=== PATIENT | male | born 1985 | race American Indian/Alaskan Native ===

== ENCOUNTER 2017-05-23 00:29 | Emergency (ER) | payer SELFPAY ==
[2017-05-23 00:44] VITALS: BP 119/69
[2017-05-23] MEDS ORDERED: DUONEB *Not for PRN Use IH ONE ×2 (00:44→00:49)
== END 2017-05-23 01:15 | disposition left against medical advice (07) ==
LOC: ED 00:29
DX: J45.909 Unspecified asthma, uncomplicated (principal); R07.89 Other chest pain; R06.2 Wheezing; Z53.21 Procedure and treatment not carried out due to patient leaving prior to being seen by health care provider
CPT/HCPCS: 94640

== ENCOUNTER 2017-05-24 01:52 | Emergency (ER) | payer OTHER ==
[2017-05-24] MEDS ORDERED: DUONEB *Not for PRN Use IH ONE (02:08)
[2017-05-24 03:02] LABS: Eosinophils % (Auto) 3.8 % (0.0-4.3); Hematocrit 45.6 % (35.5-45.6); Hemoglobin 15.2 gm/dl (11.8-15.2); Mean Corpuscular HGB Conc 33 % (32-34); Mean Corpuscular Hemoglobin 30 pg (28-32); Mean Corpuscular Volume 91 fl (84-94); Platelet Count 209 K/mm3 (140-440); Red Blood Count 5.01 M/mm3 (3.65-5.03); Red Cell Distribution Width 13.1 % (13.2-15.2); White Blood Count 9.9 K/mm3 (4.5-11.0)
[2017-05-24 03:22] LABS: Anion Gap 17 mmol/L; Blood Urea Nitrogen 12 mg/dL (9-20); Calcium 8.8 mg/dL (8.4-10.2); Carbon Dioxide 24 mmol/L (22-30); Chloride 106.1 mmol/L (98-107); Glucose 113 mg/dL (75-100); Potassium 4.1 mmol/L (3.6-5.0); Sodium 143 mmol/L (137-145)
--- NOTE | 2017-05-24 10:01 | XRay Report ---
ROUTINE CHEST, TWO VIEWS: HISTORY: Shortness of breath. The trachea, heart, mediastinal contour, lung tolentino and bony thorax are unremarkable. IMPRESSION: Unremarkable chest x-ray.
[2017-05-24 14:08] VITALS: BP 105/79
[2017-05-24] MEDS ORDERED: DELTASONE PO ONE (14:41)
[2017-05-24] MEDS ORDERED: ATROVENT IH ONE (14:41)
[2017-05-24] MEDS ORDERED: ZITHROMAX PO ONE (14:41)
[2017-05-24] MEDS ORDERED: PROVENTIL IH ONE (14:41)
--- NOTE | 2017-05-24 15:13 | Emergency Department Report ---
ED Asthma HPI - General Chief Complaint: Dyspnea/Respdistress Stated Complaint: ASTHMA Time Seen by Provider: 05/24/17 14:38 Source: patient Mode of arrival: Ambulatory Limitations: No Limitations - History of Present Illness Initial Comments: 32 year old male with a past medical history asthma presents to the hospital with shortness of breath intermittently for the past 2 weeks. Positive intermittent wheezing reported. Positive cough productive of yellow sputum. Patient denies pain, fever, or leg edema. Patient ran out of his nebulizer medication sometime ago and ran out of his inhaler last night. Denies previous history of intubation. Patient received Ventolin neb prior to my evaluation with some improvement but feels like he needs another treatment at this time. - Related Data Previous Rx's Medication Instructions Recorded Last Taken Type Albuterol Sulfate [Ventolin HFA] 2 puff IH Q4H PRN #1 hfa.aer.ad 07/24/16 05:15 Rx ALBUTEROL Inhaler [ProAir HFA 2 puff IH QID PRN #1 inha 05/24/17 Unknown Rx Inhaler] ALBUTEROL NEB's [Proventil 0.083% 2.5 mg IH TID PRN #30 neb 05/24/17 Unknown Rx NEBS] Azithromycin [Zithromax Z-CHERYL] 1 dose PO DAILY 5 Days 05/24/17 Unknown Rx Fluticasone/Salmeterol [Advair 1 puff IH BID #1 blst.w.dev 05/24/17 Unknown Rx Diskus 100-50 mcg] Prednisone [predniSONE 10 mg 10 mg PO .TAPER #1 tab.ds.pk 05/24/17 Unknown Rx (6-Day Pack, 21 Tabs)] Allergies Allergy/AdvReac Type Severity Reaction Status Date / Time No Known Allergies Allergy Verified 09/27/16 05:14 ED Review of Systems ROS: Stated complaint: ASTHMA Other details as noted in HPI Comment: All other systems reviewed and negative Other: Constitutional: No fevers chills Eyes: No eye pain visual changes ENT: No ear pain or throat pain Neck: Denies pain Respiratory: As per HPI Cardiovascular: Denies cp, palpitations, syncope GI: Denies abdominal pain, nausea, vomiting, diarrhea : Denies dysuria, urinary frequency, or urgency Musculoskeletal: Denies back pain Skin: Denies rash, lesions, erythema Neurologic: Denies headache, numbness, weakness ED Past Medical Hx - Past Medical History Hx Asthma: Yes - Surgical History Past Surgical History?: No - Social History Smoking Status: Never Smoker Substance Use Type: Alcohol - Medications Home Medications: Home Medications Medication Instructions Recorded Confirmed Last Taken Type Albuterol Sulfate [Ventolin HFA] 2 puff IH Q4H PRN #1 hfa.aer.ad 07/24/1609/27/16 05:15 Rx ALBUTEROL Inhaler [ProAir HFA 2 puff IH QID PRN #1 inha 05/24/17 Unknown Rx Inhaler] ALBUTEROL NEB's [Proventil 0.083% 2.5 mg IH TID PRN #30 neb 05/24/17 Unknown Rx NEBS] Azithromycin [Zithromax Z-CHERYL] 1 dose PO DAILY 5 Days 05/24/17 Unknown Rx Fluticasone/Salmeterol [Advair 1 puff IH BID #1 blst.w.dev 05/24/17 Unknown Rx Diskus 100-50 mcg] Prednisone [predniSONE 10 mg 10 mg PO .TAPER #1 tab.ds.pk 05/24/17 Unknown Rx (6-Day Pack, 21 Tabs)] ED Physical Exam - General Limitations: No Limitations - Other Other exam information: General: No limitations, patient is alert in no acute distress Head exam: Atraumatic, normocephalic Eyes exam: Normal appearance, pupils equal reactive to light, extraocular movements intact ENT: Moist mucous membrane, normal oropharynx Neck exam: Normal inspection, full range of motion, no meningismus nontender Respiratory exam: Mild expiratory wheezing, no tachypnea or accessory muscle use Cardiovascular: Normal rate and rhythm, normal heart sounds Abdomen: Soft, nondistended, and nontender, with normal bowel sounds, no rebound, or guarding Extremity: Full range of motion normal inspection no deformity, tenderness or edema Back: Normal Inspection, full range of motion, no tenderness Neurologic: Alert, oriented x3, cranial nerves intact, no motor or sensory deficit Psychiatric: normal affect, normal mood Skin: Warm, dry, intact ED Course Vital Signs 05/24/17 05/24/17 05/24/17 02:04 02:14 02:24 Temperature 97.4 F L Pulse Rate 66 Pulse Rate [ Anterior Bilateral Throughout] Pulse Rate [ 65 70 Posterior Bilateral Throughout] Respiratory 16 Rate Respiratory Rate [Anterior Bilateral Throughout] Respiratory 20 20 Rate [Posterior Bilateral Throughout] Blood Pressure 120/67 Blood Pressure [Left] O2 Sat by Pulse 95 Oximetry 05/24/17 05/24/17 05/24/17 14:08 14:15 14:57 Temperature 98.1 F Pulse Rate 54 L Pulse Rate [ 63 Anterior Bilateral Throughout] Pulse Rate [ 63 Posterior Bilateral Throughout] Respiratory 20 20 Rate Respiratory 20 Rate [Anterior Bilateral Throughout] Respiratory 20 Rate [Posterior Bilateral Throughout] Blood Pressure Blood Pressure 105/79 [Left] O2 Sat by Pulse 97 100 Oximetry 05/24/17 15:42 Temperature Pulse Rate Pulse Rate [ 72 Anterior Bilateral Throughout] Pulse Rate [ 72 Posterior Bilateral Throughout] Respiratory Rate Respiratory 20 Rate [Anterior Bilateral Throughout] Respiratory 20 Rate [Posterior Bilateral Throughout] Blood Pressure Blood Pressure [Left] O2 Sat by Pulse Oximetry - Reevaluation(s) Reevaluation #1: 05/24/17 15:15 Patient treated with prednisone, Zithromax, albuterol and Atrovent ED Medical Decision Making - Lab Data Result diagrams: 05/24/17 02:43 05/24/17 02:43 Lab Results 05/24/17 05/24/17 Range/Units 02:43 02:43 WBC 9.9 (4.5-11.0) K/mm3 RBC 5.01 (3.65-5.03) M/mm3 Hgb 15.2 (11.8-15.2) gm/dl Hct 45.6 (35.5-45.6) % MCV 91 (84-94) fl MCH 30 (28-32) pg MCHC 33 (32-34) % RDW 13.1 L (13.2-15.2) % Plt Count 209 (140-440) K/mm3 Lymph % (Auto) 22.9 (13.4-35.0) % Fergus % (Auto) 5.6 (0.0-7.3) % Eos % (Auto) 3.8 (0.0-4.3) % Baso % (Auto) 1.0 (0.0-1.8) % Lymph # 2.3 (1.2-5.4) K/mm3 Fergus # 0.5 (0.0-0.8) K/mm3 Eos # 0.4 (0.0-0.4) K/mm3 Baso # 0.1 (0.0-0.1) K/mm3 Seg Neutrophils % 66.7 (40.0-70.0) % Seg Neutrophils # 6.6 (1.8-7.7) K/mm3 Sodium 143 (137-145) mmol/L Potassium 4.1 (3.6-5.0) mmol/L Chloride 106.1 (98-107) mmol/L Carbon Dioxide 24 (22-30) mmol/L Anion Gap 17 mmol/L BUN 12 (9-20) mg/dL Creatinine 0.8 (0.8-1.5) mg/dL Estimated GFR > 60 ml/min BUN/Creatinine Ratio 15.00 % Glucose 113 H (75-100) mg/dL Calcium 8.8 (8.4-10.2) mg/dL Troponin T < 0.010 (0.00-0.029) ng/mL - EKG Data -: EKG Interpreted by Me (sinus rhythm rate 58, no ST elevation HI) - EKG Data When compared to previous EKG there are: previous EKG unavailable - Radiology Data Radiology results: report reviewed (chest x-ray: No acute finding) - Differential Diagnosis asthma, bronchitis, pneumonia, pneumothorax Critical Care Time: No Critical care attestation.: If time is entered above; I have spent that time in minutes in the direct care of this critically ill patient, excluding procedure time. ED Disposition Clinical Impression: Asthmatic bronchitis Disposition: DC-01 TO HOME OR SELFCARE Is pt being admited?: No Does the pt Need Aspirin: No Condition: Stable Instructions: Acute Bronchitis (ED) Additional Instructions: Take the medication as prescribed. Follow up with your primary care doctor or the doctor vitreous. Return if symptoms worsen Prescriptions: ALBUTEROL Inhaler [ProAir HFA Inhaler] 2 puff IH QID PRN #1 inha PRN Reason: Shortness Of Breath ALBUTEROL NEB's [Proventil 0.083% NEBS] 2.5 mg IH TID PRN #30 neb PRN Reason: Wheezing Azithromycin [Zithromax Z-CHERYL] 1 dose PO DAILY 5 Days Fluticasone/Salmeterol [Advair Diskus 100-50 mcg] 1 puff IH BID #1 blst.w.dev Prednisone [predniSONE 10 mg (6-Day Pack, 21 Tabs)] 10 mg PO .TAPER #1 tab.ds.pk Referrals: PRIMARY CARE, [Primary Care Provider] - 3-5 Days ESTELA MEEKS JR, MD [Staff Physician] - 3-5 Days Time of Disposition: 16:08
== END 2017-05-24 16:26 | disposition home or self-care (01) ==
LOC: ED 01:52
DX: J45.909 Unspecified asthma, uncomplicated (principal); F17.200 Nicotine dependence, unspecified, uncomplicated
CPT/HCPCS: 36415; 71020; 80048; 84484; 85025; 93005; 93010; 94640; 94644; 99284; J7512